=== PATIENT | male | born 1985 | race Caucasian/White ===

== ENCOUNTER 2017-05-29 20:06 | Emergency (ER) | payer OTHER ==
[~2017-05-29] VITALS: Ht 188 cm; Wt 83.9 kg
[~2017-05-29 20:06] MED LIST: ACETAMINOPHEN325 M1; CLONAZEPAM 1 MG1 M1 PO; IBUPROFEN; KEFLEX500 M1 PO; NAPROSYN500 MG PO; NOHOMEMEDICATIONS; PENICILLIN V P500 MG PO; PERCOCET 5-3251 EACH PO; TRAMADOL 50 MG50 MG PO
[2017-05-29 21:19] LABS: ABSOLUTE LYMPHOCYTES 1.1 thou/uL (0.8-5.3); ABSOLUTE MONOCYTES 0.5 thou/uL (0.0-1.2); ABSOLUTE NEUTROPHILS 5.2 thou/uL (1.6-8.1); BASOPHILS 0.4 %; EOSINOPHILS 0.4 %; HEMATOCRIT 47.1 % (42.0-52.0); HEMOGLOBIN 16.2 gm/dL (14.0-18.0); LYMPHOCYTES 16.3 %; MCH 29.5 pg (26.0-34.0); MCHC 34.3 g/dL (28.0-37.0); MCV 86.2 fL (80.0-100.0); MONOCYTES 7.2 %; NUCLEATED RBCS 0 /100WBC; PLATELET COUNT* 281 thou/uL (150-400); POLYS 75.7 %; RBC 5.47 mil/uL (4.50-6.00); RDW-CV 13.3 % (10.5-14.5); WBC 6.8 thou/uL (4.0-11.0)
[2017-05-29 21:28] LABS: URINE BILIRUBIN NEGATIVE (Negative); URINE BLOOD NEGATIVE (Negative); URINE CLARITY CLEAR; URINE COLOR YELLOW; URINE GLUCOSE-RANDOM NEGATIVE (Negative); URINE KETONES 3+ (Negative); URINE LEUKOCYTES-REFLEX NEGATIVE (Negative); URINE NITRITE-REFLEX NEGATIVE (Negative); URINE PROTEIN TRACE (Negative); URINE SPECIFIC GRAVITY 1.025 (1.005-1.030)
[2017-05-29 21:31] LABS: ANION GAP 10 mmol/L (7-16); BUN 24 mg/dL (7-18); CALCIUM 9.6 mg/dL (8.5-10.1); CHLORIDE 104 mmol/L (98-107); CO2 31 mmol/L (21-32); CREATININE 1.3 mg/dL (0.6-1.3); GLUCOSE 101 mg/dL (70-99); POTASSIUM 3.2 mmol/L (3.5-5.1); SODIUM 145 mmol/L (136-145)
[2017-05-29 21:36] LABS: AMP/METHAMP POSITIVE (Negative); BARBITURATES Negative (Negative); BENZODIAZEPINES Negative (Negative); COCAINE Negative (Negative); METHADONE Negative (Negative); OPIATES Negative (Negative); PCP Negative (Negative); THC Negative (Negative)
[2017-05-29 21:39] LABS: ALCOHOL < 10 mg/dL (<10); SALICYLATE < 2.8 mg/dL (2.8-20.0)
[2017-05-29 21:41] LABS: ALBUMIN 4.7 g/dL (3.4-5.0); ALKALINE PHOSPHATASE 99 U/L (46-116); LIPASE 69 U/L (73-393); MAGNESIUM 2.1 mg/dL (1.8-2.4); NT-PRO BRAIN NAT PEPTIDE 26 pg/mL (<300); SGOT 31 U/L (15-37); SGPT 39 U/L (30-65); TOTAL BILIRUBIN 1.4 mg/dL (<0.1-1.0); TOTAL PROTEIN 8.1 g/dL (6.4-8.2); TROPONIN-I LEVEL <0.06 ng/mL (<0.06)
[2017-05-30 00:41] LABS: TROPONIN-I LEVEL <0.06 ng/mL (<0.06)
[2017-05-30 09:37] VITALS: BP 127/64
--- NOTE | 2017-05-30 10:54 | EKG ---
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1985 Requested By: Nghia Gutierrez Order Number: [id number] MD: Blaise Flynn Measurements Intervals [place] Rate: 107 P: 68 [place]: 117 QRS: 67 QRSD: 83 T: 17 QT: 349 QTc: 466 Interpretive Statements Sinus tachycardia Probable left atrial enlargement Probable left ventricular hypertrophy Nonspecific T abnormalities, lateral leads Baseline wander in lead(s) V1 Compared to ECG 05/02/2014 17:24:28 T-wave abnormality now present Sinus rhythm no longer present Electronically Signed On 05-30-2017 10:54:22 [employer] by Blaise Flynn [email or web address] <ELECTRONICALLY SIGNED> By: Blaise Flynn MD, FACC 05/30/17 1054 52 52 Blaise Flynn MD, FAC /EPI
== END 2017-05-30 09:00 | disposition home or self-care (01) ==
LOC: M.ERS 20:06
PROVIDERS: Emergency Medicine Emergency Medical Services
DX: F41.9 Anxiety disorder, unspecified (principal); F19.10 Other psychoactive substance abuse, uncomplicated; R06.02 Shortness of breath; F17.210 Nicotine dependence, cigarettes, uncomplicated

== ENCOUNTER 2017-07-13 10:29 | Emergency (ER) | payer OTHER ==
[~2017-07-13] VITALS: Ht 177.8 cm; Wt 84.8 kg
[2017-07-13 11:14] LABS: ABSOLUTE MONOCYTES 0.2 thou/uL (0.0-1.2); ABSOLUTE NEUTROPHILS 3.1 thou/uL (1.6-8.1); BASOPHILS 0.3 %; EOSINOPHILS 0.4 %; HEMATOCRIT 45.1 % (42.0-52.0); HEMOGLOBIN 15.3 gm/dL (14.0-18.0); LYMPHOCYTES 22.2 %; MCH 29.6 pg (26.0-34.0); MCV 87.2 fL (80.0-100.0); MONOCYTES 5.1 %; MPV 7.7 fl. (7.2-11.1); NUCLEATED RBCS 0 /100WBC; PLATELET COUNT* 203 thou/uL (150-400); RBC 5.17 mil/uL (4.50-6.00); RDW-CV 13.9 % (10.5-14.5); WBC 4.3 thou/uL (4.0-11.0)
[2017-07-13 11:23] LABS: APTT 26.8 Seconds (25.0-31.3); INR 1.1; PROTIME 10.6 Seconds (9.20-11.50)
[2017-07-13 11:30] LABS: ANION GAP 9 mmol/L (7-16); BUN 20 mg/dL (7-18); CALCIUM 9.2 mg/dL (8.5-10.1); CHLORIDE 105 mmol/L (98-107); CO2 29 mmol/L (21-32); CREATININE 1.2 mg/dL (0.6-1.3); GLUCOSE 105 mg/dL (70-99); POTASSIUM 3.5 mmol/L (3.5-5.1); SODIUM 143 mmol/L (136-145)
[2017-07-13 11:42] LABS: ACETAMINOPHEN < 2 ug/mL (10-30); ALCOHOL < 10 mg/dL (<10); SALICYLATE < 2.8 mg/dL (2.8-20.0)
[2017-07-13 11:53] LABS: ALBUMIN 4.3 g/dL (3.4-5.0); ALKALINE PHOSPHATASE 87 U/L (46-116); NT-PRO BRAIN NAT PEPTIDE 41 pg/mL (<300); SGOT 23 U/L (15-37); SGPT 34 U/L (30-65); TOTAL PROTEIN 7.6 g/dL (6.4-8.2); TROPONIN-I LEVEL <0.06 ng/mL (<0.06)
[2017-07-13 12:03] LABS: URINE BLOOD NEGATIVE (Negative); URINE CLARITY CLEAR; URINE COLOR DARK YELLOW; URINE GLUCOSE-RANDOM NEGATIVE (Negative); URINE KETONES TRACE (Negative); URINE LEUKOCYTES-REFLEX NEGATIVE (Negative); URINE NITRITE-REFLEX NEGATIVE (Negative); URINE PROTEIN 1+ (Negative); URINE SPECIFIC GRAVITY >= 1.030 (1.005-1.030); URINE UROBILINOGEN 0.2 E.U./dl (0.2-1.0)
[2017-07-13 12:09] LABS: URINE BILIRUBIN 1+ (Negative)
[2017-07-13 12:10] LABS: AMP/METHAMP POSITIVE (Negative); BARBITURATES Negative (Negative); BENZODIAZEPINES Negative (Negative); COCAINE POSITIVE (Negative); METHADONE Negative (Negative); OPIATES Negative (Negative); PCP Negative (Negative); THC Negative (Negative)
[2017-07-13 12:15] LABS: ICTOTEST (BILI CONFIRMATORY) Negative (Negative)
[2017-07-13 15:32] VITALS: BP 135/78
--- NOTE | 2017-07-13 15:49 | EKG ---
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
== END 2017-07-13 15:32 | disposition home or self-care (01) ==
LOC: M.ERS 10:29
PROVIDERS: Family Medicine
DX: F15.10 Other stimulant abuse, uncomplicated (principal); F17.210 Nicotine dependence, cigarettes, uncomplicated; F14.10 Cocaine abuse, uncomplicated

== ENCOUNTER 2017-07-27 17:08 | Emergency (ER) | payer OTHER ==
[~2017-07-27] VITALS: Ht 188 cm; Wt 90.7 kg
[2017-07-27] MEDS ORDERED: NAPROSYN500 MG PO (18:16)
[2017-07-27] MEDS ORDERED: HYDROCODONE-AP1 EAC6 PO (18:16)
[2017-07-27] MEDS ORDERED: PERCOCET PO (18:26)
[2017-07-27 18:41] VITALS: BP 125/90
== END 2017-07-27 18:42 | disposition home or self-care (01) ==
LOC: M.ERS 17:08
DX: S82.892A Other fracture of left lower leg, initial encounter for closed fracture (principal); F17.210 Nicotine dependence, cigarettes, uncomplicated; X58.XXXA Exposure to other specified factors, initial encounter; Y93.89 Activity, other specified; Y92.89 Other specified places as the place of occurrence of the external cause; Y99.8 Other external cause status

== ENCOUNTER 2017-08-06 17:01 | Emergency (ER) | payer OTHER ==
[~2017-08-06] VITALS: Ht 188 cm; Wt 90.7 kg
[~2017-08-06 17:01] MED LIST changes: +HYDROCODONE-AP1 EAC6 PO; +PERCOCET PO
[2017-08-06] MEDS ORDERED: NAPROSYN500 MG PO (18:19)
[2017-08-06 18:27] VITALS: BP 114/78
== END 2017-08-06 18:28 | disposition home or self-care (01) ==
LOC: M.ERS 17:01
DX: S92.002A Unspecified fracture of left calcaneus, initial encounter for closed fracture (principal); F17.210 Nicotine dependence, cigarettes, uncomplicated; X58.XXXA Exposure to other specified factors, initial encounter; Y93.89 Activity, other specified; Y92.89 Other specified places as the place of occurrence of the external cause; Y99.8 Other external cause status

== ENCOUNTER 2017-09-22 16:51 | Emergency (ER) | payer OTHER ==
[~2017-09-22] VITALS: Ht 188 cm; Wt 104.3 kg
[2017-09-22 19:09] VITALS: BP 122/71
== END 2017-09-22 19:11 | disposition home or self-care (01) ==
LOC: M.ERS 16:51
DX: S92.002A Unspecified fracture of left calcaneus, initial encounter for closed fracture (principal); F17.210 Nicotine dependence, cigarettes, uncomplicated; Z59.0 Homelessness; X58.XXXA Exposure to other specified factors, initial encounter; Y93.89 Activity, other specified; Y92.89 Other specified places as the place of occurrence of the external cause; Y99.8 Other external cause status

== ENCOUNTER 2017-10-04 22:17 | Emergency (ER) | payer OTHER ==
[~2017-10-04] VITALS: Ht 188 cm; Wt 83.9 kg
[2017-10-04 22:25] VITALS: BP 135/79
== END 2017-10-04 22:25 | disposition left against medical advice (07) ==
LOC: M.ERS 22:17
DX: Z53.21 Procedure and treatment not carried out due to patient leaving prior to being seen by health care provider (principal)

== ENCOUNTER 2017-10-12 14:39 | Emergency (ER) | payer OTHER ==
[~2017-10-12] VITALS: Ht 188 cm; Wt 83.9 kg
[2017-10-12 15:44] VITALS: BP 123/73
== END 2017-10-12 15:45 | disposition home or self-care (01) ==
LOC: M.ERS 14:39
DX: M79.672 Pain in left foot (principal); F17.210 Nicotine dependence, cigarettes, uncomplicated

== ENCOUNTER → 2018-05-16 | Emergency (ER) | payer OTHER | LOC: M.ERS 17:59 | DX: Z53.21 Procedure and treatment not carried out due to patient leaving prior to being seen by health care provider (principal) ==

== ENCOUNTER 2018-05-17 14:02 | Emergency (ER) | payer OTHER ==
[~2018-05-17] VITALS: Ht 188 cm; Wt 89.4 kg
[2018-05-17 14:20] VITALS: BP 141/84
== END 2018-05-17 14:21 | disposition left against medical advice (07) ==
LOC: M.ERS 14:02
DX: Z53.21 Procedure and treatment not carried out due to patient leaving prior to being seen by health care provider (principal)

== ENCOUNTER → 2018-05-19 | Emergency (ER) | payer OTHER ==
[~2018-05-19] VITALS: Ht 185.4 cm; Wt 99.8 kg
[2018-05-19 17:24] VITALS: BP 130/94
== END ==
LOC: M.ERS 17:11
DX: Z53.21 Procedure and treatment not carried out due to patient leaving prior to being seen by health care provider (principal)

== ENCOUNTER 2018-10-18 17:00 | Emergency (ER) | payer OTHER | END 2018-10-18 17:13 | disposition left against medical advice (07) | LOC: M.ERS 17:00 | DX: Z53.21 Procedure and treatment not carried out due to patient leaving prior to being seen by health care provider (principal) ==

== ENCOUNTER 2019-04-28 08:35 | Emergency (ER) | payer OTHER ==
[~2019-04-28] VITALS: Ht 177.8 cm; Wt 65.8 kg
[2019-04-28 12:41] VITALS: BP 143/80
--- NOTE | 2019-04-29 13:58 | EKG ---
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1985 Requested By: Elias Doyle Order Number: [id number] MD: Jason Coe Measurements Intervals [place] Rate: 89 P: 55 [place]: 110 QRS: 68 QRSD: 98 T: 49 QT: 377 QTc: 459 Interpretive Statements Sinus rhythm Borderline short [place] interval Baseline wander in lead(s) V2,V5 Compared to ECG 07/13/2017 11:00:19 Sinus tachycardia no longer present Electronically Signed On 04-29-2019 13:57:48 [employer] by Jason Coe [email or web address] <ELECTRONICALLY SIGNED> By: Jason Coe MD, [facility] 04/29/19 1357 09 2 Jason Coe MD, FAC /EPI
== END 2019-04-28 12:41 | disposition home or self-care (01) ==
LOC: M.ERS 08:35
DX: F20.9 Schizophrenia, unspecified (principal); Z98.890 Other specified postprocedural states; F17.210 Nicotine dependence, cigarettes, uncomplicated

== ENCOUNTER 2019-09-21 16:22 | Emergency (ER) | payer OTHER ==
[~2019-09-21] VITALS: Ht 182.9 cm; Wt 74.8 kg
[2019-09-21 16:34] VITALS: BP 143/84
== END 2019-09-21 16:36 | disposition home or self-care (01) ==
LOC: M.ERS 16:22
DX: R05 Cough (principal); F17.210 Nicotine dependence, cigarettes, uncomplicated

== ENCOUNTER 2021-03-06 10:36 | Emergency (ER) | payer OTHER ==
[~2021-03-06] VITALS: Ht 188 cm; Wt 81.7 kg
[2021-03-06 10:38] VITALS: BP 120/82
== END 2021-03-06 10:50 | disposition home or self-care (01) ==
LOC: M.ERS 10:36
DX: M54.50 Low back pain, unspecified (principal); F17.210 Nicotine dependence, cigarettes, uncomplicated

== ENCOUNTER 2021-05-15 02:19 | Emergency (ER) | payer OTHER ==
[~2021-05-15] VITALS: Ht 188 cm; Wt 86.2 kg
[2021-05-15] MEDS ORDERED: NORCO5 PO (08:58)
[2021-05-15] MEDS ORDERED: CEPHALEXIN500 MG PO (08:58)
[2021-05-15 09:04] VITALS: BP 136/94
== END 2021-05-15 09:05 | disposition home or self-care (01) ==
LOC: M.ERS 02:19
DX: L02.213 Cutaneous abscess of chest wall (principal); F17.210 Nicotine dependence, cigarettes, uncomplicated

== ENCOUNTER 2021-05-17 16:41 | Emergency (ER) | payer OTHER ==
[~2021-05-17] VITALS: Ht 188 cm; Wt 86.2 kg
[~2021-05-17 16:41] MED LIST changes: +CEPHALEXIN500 MG PO; +NORCO5 PO
[2021-05-17 18:00] VITALS: BP 123/85
== END 2021-05-17 18:00 | disposition home or self-care (01) ==
LOC: M.ERS 16:41
DX: N61.1 Abscess of the breast and nipple (principal); F17.210 Nicotine dependence, cigarettes, uncomplicated